=== PATIENT | female | born 1980 | race African-American/Black ===

== ENCOUNTER 2016-06-07 09:33 | Emergency (ER) | payer MEDICAID ==
[~2016-06-07] VITALS: Ht 170.2 cm; Wt 93.0 kg
[~2016-06-07 09:33] MED LIST: IBUPROFEN600 MG ORAL; KEFLEX500 MG ORAL; NKM
[2016-06-07 09:45] VITALS: BP 115/71
[2016-06-07] MEDS ORDERED: KEFLEX500 MG ORAL (09:57)
[2016-06-07] MEDS ORDERED: IBUPROFEN800 MG ORAL (09:57)
[2016-06-07] MEDS ORDERED: Bacitracin Oint 15gm Tube TOPIC ONE (10:00)
[2016-06-07] MEDS ORDERED: TdaP Vaccine 0.5ml Syr IM ONE (10:00)
[2016-06-07] MEDS ORDERED: BACITRACIN15 GM TOPIC (10:23)
[2016-06-07 10:34] VITALS: BP 115/71
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
== END 2016-06-07 10:35 | disposition home or self-care (01) ==
LOC: EMR 09:50
DX: S80.812A Abrasion, left lower leg, initial encounter (principal); S80.811A Abrasion, right lower leg, initial encounter; Z23 Encounter for immunization; V87.8XXA Person injured in other specified noncollision transport accidents involving motor vehicle (traffic), initial encounter; Y92.410 Unspecified street and highway as the place of occurrence of the external cause; Y99.8 Other external cause status
CPT/HCPCS: 90471; 90715; 99284

== ENCOUNTER 2016-07-02 09:34 | Emergency (ER) | payer MEDICAID ==
[~2016-07-02] VITALS: Ht 170.2 cm; Wt 90.7 kg
[~2016-07-02 09:34] MED LIST changes: +BACITRACIN15 GM TOPIC; +IBUPROFEN800 MG ORAL
[2016-07-02 10:00] VITALS: BP 133/82
[2016-07-02] MEDS ORDERED: TAMIFLU75 MG ORAL (10:04)
[2016-07-02] MEDS ORDERED: IBUPROFEN600 MG ORAL (10:04)
[2016-07-02] MEDS ORDERED: IBUPROFEN800 MG ORAL (10:21)
[2016-07-02 10:24] VITALS: BP 133/82
--- NOTE | 2016-07-02 10:59 | Emergency Room Report ---
History of Present Illness General Chief Complaint: Flu Like Symptoms Source: Patient Present Illness HPI 36-year-old female presents ED complaining of chills and bodyaches and cough x3 days. Patient is afebrile in triage. Notes dry cough. Notes runny nose and bodyaches. Pain is dull, 5 at 10, nonradiating. No other aggravating or relieving factors. Denies chest pain or shortness of breath. Denies nausea or vomiting. Denies sick contacts recent travel. Denies any other associated symptoms Allergies: Coded Allergies: NO KNOWN ALLERGIES (Unverified Allergy, Unknown, 03/07/15) Patient History Past Medical History: none Past Surgical History: none Pertinent Family History: none Social History: Denies: alcohol use, drug use, smoking Last Menstrual Period: 05/30/16 Now: No Immunizations: UTD Reviewed Nursing Documentation: PMH: Agreed, PSxH: Agreed Nursing Documentation-PMH Past Medical History: No Stated History Review of Systems All Other Systems: negative except mentioned in HPI Physical Exam Vital Signs Date Time Temp Pulse Resp B/P Pulse Ox O2 Delivery O2 Flow Rate FiO2 07/02/16 09:41 98.4 91 18 133/82 99 Room Air Sp02 EP Interpretation: reviewed, normal General Appearance: no apparent distress, alert, GCS 15, non-toxic Head: normocephalic, atraumatic Eyes: bilateral eye PERRL, bilateral eye normal inspection ENT: hearing grossly normal, normal pharynx, no angioedema, normal voice Neck: full range of motion, supple/symm/no masses Respiratory: chest non-tender, lungs clear, normal breath sounds, speaking full sentences Cardiovascular #1: regular rate, rhythm, no edema Cardiovascular #2: 2+ carotid (R), 2+ carotid (L), 2+ radial (R), 2+ radial (L) , 2+ dorsalis pedis (R), 2+ dorsalis pedis (L) Gastrointestinal: normal bowel sounds, non tender, soft, non-distended, no guarding, no rebound Rectal: deferred Genitourinary: normal inspection, no CVA tenderness Musculoskeletal: back normal, gait/station normal, normal range of motion, non- tender Neurologic: alert, oriented x3, responsive, motor strength/tone normal, sensory intact, speech normal Psychiatric: judgement/insight normal, memory normal, mood/affect normal, no suicidal/homicidal ideation Reflexes: 3+ bicep (R), 3+ bicep (L), 3+ tricep (R), 3+ tricep (L), 3+ knee (R) , 3+ knee (L) Skin: normal color, no rash, warm/dry, well hydrated Lymphatic: no adenopathy Medical Decision Making Diagnostic Impression: Primary Impression: Influenza-like symptoms ER Course Hospital Course 36-year-old F presents to ED complaining of chills + bodyaches + cough Differential diagnoses include: URI, pharyngitis, otitis media, influenza Clinical course Patient placed on stretcher. After initial history physical exam reveals a young female in no acute distress. Bilateral TM unremarkable, no pharyngeal erythema. Lungs clear. No CVA tenderness. Clinical findings consistent with influenza. Given that I will treat her with Tamiflu Diagnosis - influenza-like symptoms Stable and discharged home with prescriptions for tamiflu, motrin. drink plenty of fluids. Instructed to followup with PMD. Return to ED if symptoms recur or worsen Last Vital Signs Date Time Temp Pulse Resp B/P Pulse Ox O2 Delivery O2 Flow Rate FiO2 07/02/16 10:24 98.4 18 133/82 99 Room Air 07/02/16 10:00 91 Status: improved Disposition: HOME, SELF-CARE Condition: Stable Scripts Ibuprofen* (MOTRIN*) 800 Mg Tablet 800 MG ORAL Q8H, #30 TAB 0 Refills Prov: EDDIE ROBISON M.D. 07/02/16 Oseltamivir Phosphate (Tamiflu) 75 Mg Capsule 75 MG ORAL TWICE A DAY for 5 Days, CAP Prov: EDDIE ROBISON M.D. 07/02/16 Departure Forms: Return to Work Return to Work Date: Jul 05, 2016 Work Restrictions: None Patient Instructions: Influenza, Adult, [id number] EDDIE ROBISON M.D. Jul 02, 2016 10:59
== END 2016-07-02 10:26 | disposition home or self-care (01) ==
LOC: EMR 09:54
DX: J11.1 Influenza due to unidentified influenza virus with other respiratory manifestations (principal)
CPT/HCPCS: 99284

== ENCOUNTER 2016-08-19 09:30 | Emergency (ER) | payer MEDICAID ==
[~2016-08-19] VITALS: Ht 170.2 cm; Wt 93.4 kg
[~2016-08-19 09:30] MED LIST changes: +TAMIFLU75 MG ORAL
[2016-08-19] MEDS ORDERED: PEPCID20 MG ORAL (10:46)
[2016-08-19] MEDS ORDERED: ZOFRAN ODT4 MG ORAL (10:46)
[2016-08-19 11:19] VITALS: BP 115/73
[2016-08-19 11:22] VITALS: BP 115/73
--- NOTE | 2016-08-19 13:14 | Emergency Room Report ---
History of Present Illness General Chief Complaint: Abdominal Pain Source: Patient Present Illness HPI [id number] presents walk-in with 3 days generalizd stomach discomfort, nausea/ vomiting, bloating/gas, diarrhea. No sick contacts. No foreign travel. No previous abd/pelvic surgery. Feels well otherwise. Didnt take any OTC meds. Allergies: Coded Allergies: NO KNOWN ALLERGIES (Unverified Allergy, Unknown, 03/07/15) Patient History Past Medical History: none Past Surgical History: none Pertinent Family History: none Social History: Denies: alcohol use, drug use, smoking Last Menstrual Period: on period Now: No Immunizations: UTD Reviewed Nursing Documentation: PMH: Agreed, PSxH: Agreed Nursing Documentation-PMH Past Medical History: No Stated History Review of Systems All Other Systems: negative except mentioned in HPI Physical Exam Vital Signs Date Time Temp Pulse Resp B/P Pulse Ox O2 Delivery O2 Flow Rate FiO2 08/19/16 09:46 98.2 78 16 110/71 99 Room Air Sp02 EP Interpretation: reviewed, normal General Appearance: normal inspection, well appearing, no apparent distress, alert, GCS 15, non-toxic Head: normocephalic, atraumatic Eyes: bilateral eye EOMI, bilateral eye PERRL ENT: normal ENT inspection, hearing grossly normal, normal voice Neck: normal inspection, full range of motion, supple, no bony tend Respiratory: normal inspection, lungs clear, normal breath sounds, no respiratory distress, no retraction, no wheezing Cardiovascular #1: regular rate, rhythm, no edema Gastrointestinal: normal inspection, normal bowel sounds, non tender, soft, no guarding, no hernia, other - Bloated abdomen Genitourinary: no CVA tenderness Musculoskeletal: normal inspection, back normal, normal range of motion, Beth' s Sign negative Neurologic: normal inspection, alert, oriented x3, responsive, materials manager III-XII nml as tested, motor strength/tone normal, speech normal Psychiatric: normal inspection, judgement/insight normal, mood/affect normal Skin: normal inspection Lymphatic: normal inspection Medical Decision Making Diagnostic Impression: Primary Impression: Gastroenteritis ER Course VSS. Afebrile No focal Exam continues to be non-focal on serial exam of abdomen Likely viral gastroenteritis Low suspicion for acute bacterial or surgical process at this time Rx Pepcid, Zofran Advised BRAT diet, fluids and PMD followup Understands to Return to ER for worsening, focal abd pain, fever/chills or inability to tolerate PO Last Vital Signs Date Time Temp Pulse Resp B/P Pulse Ox O2 Delivery O2 Flow Rate FiO2 08/19/16 11:22 98.6 80 14 115/73 100 Room Air Status: improved Disposition: HOME, SELF-CARE Condition: Improved Scripts Ondansetron Odt* (ZOFRAN ODT*) 4 Mg Tab.rapdis 4 MG ORAL BID Y for Nausea & Vomiting for 7 Days, #14 TAB 0 Refills Prov: LYNDSEY ORNELAS M.D. 08/19/16 Famotidine (PEPCID) 20 Mg Tablet 20 MG ORAL BID for 7 Days, #14 TAB 0 Refills Prov: LYNDSEY ORNELAS M.D. 08/19/16 Patient Instructions: Viral Gastroenteritis, Adult, [id number] Additional Instructions: - Take zofran as needed for nausea - BRAT diet - bananas/rice/apple sauce/toast - progress diet slowly - Drink plenty of liquids - Take pepcid twice daily for 1 week - Return to ER for worsening abdominal pain to one particular area of your abdomen, fever/chills, inability to keep water down LYNDSEY ORNELAS M.D. Aug 19, 2016 13:14
== END 2016-08-19 11:22 | disposition home or self-care (01) ==
LOC: EMR 10:00
DX: K52.9 Noninfective gastroenteritis and colitis, unspecified (principal)
CPT/HCPCS: 99284

== ENCOUNTER 2017-01-20 23:05 | Emergency (ER) | payer MEDICAID ==
[~2017-01-20] VITALS: Ht 170.2 cm; Wt 90.7 kg
[~2017-01-20 23:05] MED LIST changes: +PEPCID20 MG ORAL; +ZOFRAN ODT4 MG ORAL
[2017-01-20] MEDS ORDERED: IBUPROFEN600 MG ORAL ×2 (23:27→23:35)
[2017-01-20 23:41] VITALS: BP 152/88
--- NOTE | 2017-01-21 02:02 | Emergency Room Report ---
History of Present Illness General Chief Complaint: Flu Like Symptoms Source: Patient Present Illness HPI 36-year-old female no significant past medical history presenting with 2 days of runny nose, myalgias, cough. Patient states that she has Raynaud's of clear nasal discharge, myalgias entire body. Nonproductive cough. No shortness of breath. No fever or chills. Patient states that she normally gets a viral illness every year, and is normally prescribed antibiotics. Reports sick contacts, children are sick at home Allergies: Coded Allergies: NO KNOWN ALLERGIES (Unverified Allergy, Unknown, 03/07/15) Patient History Past Medical History: see triage record Past Surgical History: none Pertinent Family History: none Last Menstrual Period: last month Reviewed Nursing Documentation: PMH: Agreed, PSxH: Agreed Nursing Documentation-PMH Past Medical History: No Stated History Review of Systems All Other Systems: negative except mentioned in HPI Physical Exam Vital Signs Date Time Temp Pulse Resp B/P (MAP) Pulse Ox O2 Delivery O2 Flow Rate FiO2 01/20/17 23:06 98.1 55 16 152/88 100 Room Air Sp02 EP Interpretation: reviewed, normal General Appearance: normal inspection, well appearing, no apparent distress, alert, GCS 15, non-toxic, other - Well-hydrated, nontoxic, speaking in complete sentences. Head: normocephalic, atraumatic Eyes: bilateral eye normal inspection, bilateral eye PERRL, bilateral eye EOMI ENT: normal ENT inspection, normal pharynx, normal voice, moist mucus membranes Neck: normal inspection, full range of motion, supple Respiratory: normal inspection, lungs clear, normal breath sounds, no respiratory distress, no retraction, no wheezing, speaking full sentences, chest symmetrical Cardiovascular #1: normal inspection, regular rate, rhythm, no edema, normal capillary refill Cardiovascular #2: 2+ radial (R), 2+ radial (L) Gastrointestinal: normal inspection, non tender, soft, non-distended, no guarding Musculoskeletal: normal inspection, back normal, normal range of motion, non- tender Neurologic: normal inspection, alert, oriented x3, responsive, motor strength/ tone normal, sensory intact, normal gait, speech normal Psychiatric: normal inspection, judgement/insight normal, memory normal Skin: normal inspection, normal color, no rash, warm/dry, well hydrated, normal turgor Medical Decision Making Diagnostic Impression: Primary Impression: Viral URI ER Course 36-year-old female with runny nose cough for 2 days Discharge diagnosis Likely viral syndrome, lung exam benign Plan Motrin, supportive care ER course: Patient remains nontoxic, not in resp distress. Patient became very angry when I told her that viral illnesses are treated with supportive care, Motrin, Tylenol. Patient. Angry and states that she needs a prescription for antibiotics, because that is what always works for her. I had a conversation, educating the patient that antibiotics are not indicated, and she will get better in time. She asked to speak to the supervisor fabrication and that she wanted to file a complaint. Nursing staff as well try to explain to her that antibiotics are not indicated at this time however she became extremely hostile and argumentative. Disposition: Patient is to be discharged home with a prescription of Motrin Strict precautions discussed with patient on when to return to the emergency room including hemoptysis, high fevers, chills, SOB, chest pain which may indicate severe illness. Patient is to follow up with their primary care doctor within 5 days. Patient agrees with plan. Please note that this Emergency Department Report was dictated using [employer] technology software, occasionally this can lead to erroneous entry secondary to interpretation by the dictation equipment. Last Vital Signs Date Time Temp Pulse Resp B/P (MAP) Pulse Ox O2 Delivery O2 Flow Rate FiO2 01/20/17 23:41 98.1 65 16 152/88 100 Room Air Disposition: HOME, SELF-CARE Condition: Stable Scripts Ibuprofen* (MOTRIN*) 600 Mg Tablet 800 MG ORAL Q8H Y for For Pain, #30 TAB 0 Refills Prov: Leonel Luna M.D. 01/20/17 Ibuprofen* (MOTRIN*) 600 Mg Tablet 600 MG ORAL Q8H Y for For Pain, #30 TAB 0 Refills Prov: Leonel Luna M.D. 01/20/17 Referrals: [facility],REFERRING (PCP) Patient Instructions: Upper Respiratory Infection, Adult Leonel Luna M.D. Jan 21, 2017 02:02
== END 2017-01-20 23:45 | disposition home or self-care (01) ==
LOC: EMR 23:28
DX: J06.9 Acute upper respiratory infection, unspecified (principal); R09.89 Other specified symptoms and signs involving the circulatory and respiratory systems; R05 Cough
CPT/HCPCS: 99284

== ENCOUNTER 2017-02-02 03:40 | Emergency (ER) | payer MEDICAID ==
[~2017-02-02] VITALS: Ht 170.2 cm; Wt 93.0 kg
[2017-02-02] MEDS ORDERED: PROMETH-CODEIN 65 ML PO (04:00)
[2017-02-02] MEDS ORDERED: PREDNISONE20 MG ORAL (04:00)
[2017-02-02] MEDS ORDERED: IBUPROFEN600 MG ORAL (04:00)
--- NOTE | 2017-02-02 04:01 | Emergency Room Report ---
History of Present Illness General Chief Complaint: Flu Like Symptoms Source: Patient Present Illness HPI Is a 36-year-old female with no past medical history. She presents with chief complaint of cough congestion and sore throat. Losing her voice. Onset yesterday. [id number] medication not helping. Denies any fever or chills. Denies any nausea or vomiting. Worse with talking and swallowing. Allergies: Coded Allergies: NO KNOWN ALLERGIES (Unverified Allergy, Unknown, 03/07/15) Patient History Past Medical History: see triage record, old chart reviewed Past Surgical History: none Pertinent Family History: none Social History: Denies: smoking Last Menstrual Period: last week Now: No Immunizations: other Reviewed Nursing Documentation: PMH: Agreed, PSxH: Agreed Review of Systems Eye: Denies: eye pain, blurred vision ENT: Reports: throat pain, Denies: ear pain, nose congestion, throat swelling Respiratory: Reports: cough, Denies: shortness of breath Cardiovascular: Denies: chest pain, palpitations Gastrointestinal: Denies: abdominal pain, diarrhea, nausea, vomiting Musculoskeletal: Denies: back pain, joint pain Skin: Denies: rash Neurological: Denies: headache, numbness Endocrine: Denies: increased thirst, increased urine Hematologic/Lymphatic: Denies: easy bruising All Other Systems: negative except mentioned in HPI Physical Exam Vital Signs Date Time Temp Pulse Resp B/P (MAP) Pulse Ox O2 Delivery O2 Flow Rate FiO2 02/02/17 03:43 98.1 67 20 113/87 98 02/02/17 03:49 Room Air vitals normal Sp02 EP Interpretation: reviewed, normal General Appearance: well appearing, no apparent distress, alert Head: normocephalic, atraumatic Eyes: bilateral eye PERRL, bilateral eye EOMI ENT: hearing grossly normal, normal pharynx Neck: full range of motion, supple, no meningismus Respiratory: chest non-tender, lungs clear, normal breath sounds Cardiovascular #1: regular rate, rhythm, no murmur Gastrointestinal: normal bowel sounds, non tender, no mass, no organomegaly, no bruit, non-distended Musculoskeletal: back normal, gait/station normal, normal range of motion Psychiatric: mood/affect normal Skin: warm/dry Medical Decision Making Diagnostic Impression: Primary Impression: Laryngitis, acute Additional Impression: URI (upper respiratory infection) Qualified Codes: J06.9 - Acute upper respiratory infection, unspecified; B97.89 - Other viral agents as the cause of diseases classified elsewhere ER Course She with a viral illness. No evidence of acute infection. No evidence of meningitis, sepsis, epiglottitis or other bacterial infection. Last Vital Signs Date Time Temp Pulse Resp B/P (MAP) Pulse Ox O2 Delivery O2 Flow Rate FiO2 02/02/17 03:49 67 20 Room Air 02/02/17 03:43 98.1 113/87 98 Status: unchanged Disposition: HOME, SELF-CARE Condition: Stable Scripts Promethazine HCl/Codeine (Prometh-Codein 6.25-10 mg/5 ml) 5 Ml Syrup 10 ML PO QID Y for For Cough, #120 ML Prov: NAZ PORTER M.D. 02/02/17 Ibuprofen* (MOTRIN*) 600 Mg Tablet 600 MG ORAL THREE TIMES A DAY, #30 TAB 0 Refills Prov: NAZ PORTER M.D. 02/02/17 Prednisone* (PREDNISONE*) 20 Mg Tablet 60 MG ORAL DAILY, #9 TAB Prov: NAZ PORTER M.D. 02/02/17 Additional Instructions: Followup with your Dr. in 5-7 days. Return if symptom worsen. NAZ PORTER M.D. Feb 02, 2017 04:01
[2017-02-02 04:08] VITALS: BP 113/87
== END 2017-02-02 04:08 | disposition home or self-care (01) ==
LOC: EMR 03:58
DX: J04.0 Acute laryngitis (principal); J06.9 Acute upper respiratory infection, unspecified
CPT/HCPCS: 99284

== ENCOUNTER 2017-09-07 06:12 | Emergency (ER) | payer MEDICAID ==
[~2017-09-07] VITALS: Ht 170.2 cm; Wt 88.5 kg
[~2017-09-07 06:12] MED LIST changes: +PREDNISONE20 MG ORAL; +PROMETH-CODEIN 65 ML PO
[2017-09-07] MEDS ORDERED: NKM (06:17)
[2017-09-07 06:25] VITALS: BP 131/86
[2017-09-07] MEDS ORDERED: AUGMENTIN 875-1 EAC1 ORAL (06:30)
[2017-09-07] MEDS ORDERED: IBUPROFEN600 MG ORAL (06:30)
[2017-09-07 06:45] VITALS: BP 131/86
--- NOTE | 2017-09-09 21:46 | Emergency Room Report ---
History of Present Illness General Chief Complaint: Upper Respiratory Illness Source: Patient, Medical Record Present Illness HPI Patient presents with complaints of body ache sore throat Ongoing for the past several days Denies any posterior neck pain denies any photophobia Denies any chest pain or shortness of breath Denies any dysuria frequency Denies any recent travel Pain is worse with swallowing Allergies: Coded Allergies: NO KNOWN ALLERGIES (Unverified Allergy, Unknown, 03/07/15) Patient History Past Medical History: see triage record Pertinent Family History: none Last Menstrual Period: 09/03/17 Now: No : 4 Para: 4 Reviewed Nursing Documentation: PMH: Agreed; PSxH: Agreed Review of Systems All Other Systems: negative except mentioned in HPI Physical Exam Vital Signs Date Time Temp Pulse Resp B/P (MAP) Pulse Ox O2 Delivery O2 Flow Rate FiO2 09/07/17 06:14 98.0 73 16 131/86 96 Room Air 98.1 Sp02 EP Interpretation: reviewed, normal General Appearance: well appearing, no apparent distress Head: normocephalic, atraumatic Eyes: bilateral eye PERRL, bilateral eye EOMI ENT: hearing grossly normal, TMs + canals normal, uvula midline, pharyngeal erythema - With bilateral exudates Neck: full range of motion, supple, no meningismus, no bony tend Respiratory: lungs clear, normal breath sounds, no rhonchi, no respiratory distress, no retraction, no accessory muscle use Cardiovascular #1: normal peripheral pulses, regular rate, rhythm, no edema, no gallop, no JVD, no murmur Gastrointestinal: normal bowel sounds, non tender, soft, no mass, no organomegaly, non-distended, no guarding, no hernia, no pulsatile mass, no rebound Musculoskeletal: normal inspection Neurologic: oriented x3, responsive, chief ultrasound technologist III-XII nml as tested, motor strength/ tone normal, sensory intact Psychiatric: mood/affect normal Skin: normal color, no rash, warm/dry, palpation normal Lymphatic: normal inspection, no adenopathy Medical Decision Making Diagnostic Impression: Primary Impression: pharyngitis ER Course Patient appears to have findings consistent with bacterial pharyngitis Does not appear septic or toxic Has a benign neurological evaluation Suspicion for meningitis is low patient will be placed on antibiotics and requires close follow-up Last Vital Signs Date Time Temp Pulse Resp B/P (MAP) Pulse Ox O2 Delivery O2 Flow Rate FiO2 09/07/17 06:45 98.1 73 16 131/86 96 Room Air 98.1 Status: improved Disposition: HOME, SELF-CARE Condition: Stable Scripts Ibuprofen* (MOTRIN*) 600 Mg Tablet 600 MG ORAL Q8H PRN for For Pain, #20 TAB 0 Refills Prov: Yovanny Vasquez DO 09/07/17 Amoxicillin/Potassium Clav 875-125* (AUGMENTIN 875-125 TABLET*) 1 Each Tablet 1 TAB ORAL TWICE A DAY, #14 TAB Prov: Yovanny Vasquez DO 09/07/17 Referrals: NOT CHOSEN [facility]/MD,REFERRING Patient Instructions: Pharyngitis, [id number] Additional Instructions: Patient is provided with the discharge instructions notified to follow up with primary doctor in the next 2-3 days otherwise return to the er with any worsening symptoms. Please note that this report is being documented using [employer] technology. This can lead to erroneous entry secondary to incorrect interpretation by the dictating instrument. Yovanny Vasquez DO September 09, 2017 21:46
== END 2017-09-07 06:45 | disposition home or self-care (01) ==
LOC: EMR 06:34
DX: J02.9 Acute pharyngitis, unspecified (principal)
CPT/HCPCS: 99284

== ENCOUNTER 2017-10-19 00:55 | Emergency (ER) | payer MEDICAID ==
[~2017-10-19] VITALS: Ht 170.2 cm; Wt 90.7 kg
[~2017-10-19 00:55] MED LIST changes: +AUGMENTIN 875-1 EAC1 ORAL
[2017-10-19] MEDS ORDERED: ZITHROMAX250 MG ORAL (01:20)
[2017-10-19] MEDS ORDERED: IBUPROFEN600 MG ORAL (01:20)
--- NOTE | 2017-10-19 01:21 | Emergency Room Report ---
History of Present Illness General Chief Complaint: Pain Source: Patient Present Illness HPI Is a 37-year-old female with no significant past medical history. She presents with chief point of left shoulder pain status post fall. [place] the park and landed on her left side. Now with pain in that area. Worse with movement. No loss of consciousness. No head injury. Pain is 7 out of 10. Worse with movement. Second complaint is sore throat. She was diagnosed with pharyngitis but has been taking her medication sporadically. Her significant other was diagnosed with strep throat by throat culture. His symptom resolved after taking medication. Her ears continue to linger because she missed here in there. Allergies: Coded Allergies: NO KNOWN ALLERGIES (Unverified Allergy, Unknown, 10/19/17) Patient History Past Medical History: see triage record, old chart reviewed Past Surgical History: none Pertinent Family History: none Social History: Denies: smoking Last Menstrual Period: 08/2017 Now: No Immunizations: other Reviewed Nursing Documentation: PMH: Agreed; PSxH: Agreed Nursing Documentation-PMH Past Medical History: No History, Except For Review of Systems Eye: Denies: eye pain, blurred vision ENT: Denies: ear pain, nose congestion, throat swelling Respiratory: Denies: cough, shortness of breath Cardiovascular: Denies: chest pain, palpitations Gastrointestinal: Denies: abdominal pain, diarrhea, nausea, vomiting Musculoskeletal: Reports: joint pain; Denies: back pain Skin: Denies: rash Neurological: Denies: headache, numbness Endocrine: Denies: increased thirst, increased urine Hematologic/Lymphatic: Denies: easy bruising All Other Systems: negative except mentioned in HPI Physical Exam Vital Signs Date Time Temp Pulse Resp B/P (MAP) Pulse Ox O2 Delivery O2 Flow Rate FiO2 10/19/17 00:58 98.5 64 16 127/62 98 Room Air 98.4 vitals normal Sp02 EP Interpretation: reviewed, normal General Appearance: well appearing, no apparent distress, alert Head: normocephalic, atraumatic Eyes: bilateral eye PERRL, bilateral eye EOMI ENT: hearing grossly normal, normal pharynx Neck: full range of motion, supple, no meningismus Respiratory: chest non-tender, lungs clear, normal breath sounds Cardiovascular #1: regular rate, rhythm, no murmur Gastrointestinal: normal bowel sounds, non tender, no mass, no organomegaly, no bruit, non-distended Musculoskeletal: back normal, gait/station normal, normal range of motion, tender Psychiatric: mood/affect normal Skin: warm/dry Medical Decision Making Diagnostic Impression: Primary Impression: Contusion of left shoulder, initial encounter Additional Impression: Pharyngitis, acute Qualified Codes: J02.9 - Acute pharyngitis, unspecified ER Course Patient with a pharyngitis. No evidence of strep throat or peritonsillar abscess or retropharyngeal abscess. We'll discharge home. She also has contusion to the left shoulder area. No fracture dislocation. Other X-Ray Diagnostic Results Other X-Ray Diagnostic Results : X-Ray ordered: Left shoulder xrays # of Views/Limited Vs Complete: 3 View Indication: Pain EP Interpretation: Yes Interpretation: no dislocation, no soft tissue swelling, no fractures Impression: No acute disease Electronically Signed by: Ajith Casiano MD Last Vital Signs Date Time Temp Pulse Resp B/P (MAP) Pulse Ox O2 Delivery O2 Flow Rate FiO2 10/19/17 00:58 98.5 64 16 127/62 98 Room Air 98.4 Status: improved Disposition: HOME, SELF-CARE Condition: Stable Scripts Azithromycin* (ZITHROMAX*) 250 Mg Tablet 250 MG ORAL DAILY, #6 TAB 0 Refills Take two tables once daily for 1 day, then one tablet once daily for 4 days. Prov: AJITH CASIANO M.D. 10/19/17 Ibuprofen* (MOTRIN*) 600 Mg Tablet 600 MG ORAL THREE TIMES A DAY, #30 TAB 0 Refills Prov: AJITH CASIANO M.D. 10/19/17 Additional Instructions: Follow-up with your doctor in 7 days. Return of worse. AJITH CASIANO M.D. Oct 19, 2017 01:21
[2017-10-19 01:34] VITALS: BP 127/62
--- NOTE | 2017-10-19 12:45 | Diagnostic Imaging Report ---
Indication: Left shoulder pain, trauma Technique: 3 views of the left shoulder Comparison: none Findings: No acute fractures. No dislocations. The joint spaces are preserved Impression: Negative
== END 2017-10-19 04:45 | disposition home or self-care (01) ==
LOC: EMR 01:15
DX: S40.012A Contusion of left shoulder, initial encounter (principal); W19.XXXA Unspecified fall, initial encounter; Y92.9 Unspecified place or not applicable; J02.9 Acute pharyngitis, unspecified
CPT/HCPCS: 99284

== ENCOUNTER 2019-01-06 01:34 | Emergency (ER) | payer MEDICAID ==
[~2019-01-06] VITALS: Ht 170.2 cm; Wt 81.6 kg
[~2019-01-06 01:34] MED LIST changes: +ZITHROMAX250 MG ORAL
--- NOTE | 2019-01-06 02:00 | NUR ---
ED Nurse Note: Recieved pt from home, here with c/o left hand pain since this afternoon, s/p mechanical fall, pt states was coming out of store and fell, denies k.o, dizziness, or any other complaints or discomforts, pt is in bed sleeping, aroused for assessment, refuses to give urine at this time, ice pack applied to hand area with immobilization and elevation.
[2019-01-06] MEDS ORDERED: Acetaminophen 500mg (ES) tab ORAL ONE (03:15)
[2019-01-06] MEDS ORDERED: VOLTAREN100 G1 TP (04:36)
[2019-01-06] MEDS ORDERED: IBUPROFEN600 MG ORAL (04:36)
[2019-01-06] MEDS ORDERED: ACETAMINOPHEN500 M3 ORAL (04:36)
--- NOTE | 2019-01-06 05:05 | NUR ---
ED Nurse Note: Pt cleared to be d/c per ermd, pt discharge and aftercare instruction provided w/ prescription, pt education done via discussion and handout, pt verbalized understanding and agrees with plan, vss, ambulatory w/ steady gait, pt left w/ all belongings.
[2019-01-06 05:08] VITALS: BP 108/86
--- NOTE | 2019-01-06 11:08 | Diagnostic Imaging Report ---
Indication: left hand pain. Comparison: None Findings: 3 views of the left hand were obtained. Normal alignment is demonstrated. No acute fractures, erosions, or periosteal reaction are seen. Soft tissues are unremarkable. Impression: No acute findings.
--- NOTE | 2019-01-07 21:03 | Emergency Room Report ---
History of Present Illness General Chief Complaint: Pain Source: Patient Present Illness Allergies: Coded Allergies: NO KNOWN ALLERGIES (Unverified Allergy, Unknown, 10/19/17) Patient History Last Menstrual Period: 12/20/18 Now: No Nursing Documentation-[facility] Past Medical History: No Stated History Physical Exam Vital Signs Date Time Temp Pulse Resp B/P (MAP) Pulse Ox O2 Delivery O2 Flow Rate FiO2 01/06/19 01:42 98.6 58 18 121/68 (85) 100 Room Air Medical Decision Making Diagnostic Impression: Primary Impression: Left thumb sprain Last Vital Signs Date Time Temp Pulse Resp B/P (MAP) Pulse Ox O2 Delivery O2 Flow Rate FiO2 01/06/19 05:08 98.6 68 18 108/86 98 Room Air Status: improved Disposition: HOME, SELF-CARE Condition: Stable Scripts Diclofenac Sodium (VOLTAREN) 100 Gm Gel..gram. 5 GM TP DAILY for pain, #100 GM Prov: Justino Deleon MD 01/06/19 Acetaminophen* (ACETAMINOPHEN EXTRA STRENGTH*) 500 Mg Tablet 500 MG ORAL Q8H PRN for Fever/Headache/Mild Pain, #30 TAB Prov: Justino Deleon MD 01/06/19 Ibuprofen* (MOTRIN*) 600 Mg Tablet 600 MG ORAL Q8H PRN for For Pain, #30 TAB 0 Refills Prov: Justino Deleon MD 01/06/19 Patient Instructions: Thumb Sprain Justino Deleon MD Jan 07, 2019 21:03
== END 2019-01-06 05:08 | disposition home or self-care (01) ==
LOC: EMR 02:13
DX: S63.602A Unspecified sprain of left thumb, initial encounter (principal); X58.XXXA Exposure to other specified factors, initial encounter; Y92.9 Unspecified place or not applicable
CPT/HCPCS: 81025; 99283